=== PATIENT | female | born 1970 | race American Indian/Alaskan Native ===

== ENCOUNTER 2022-02-12 01:35 | Emergency (ER) | payer OTHER ==
[2022-02-12] MEDS ORDERED: predniSONE 20 MG TAB PO SCH (08:30)
[2022-02-12] MEDS ORDERED: ALBUTEROL 2.5 MG/3 ML NEBU IH SCH (08:30)
[2022-02-12] MEDS ORDERED: ACETAMINOPHEN W/CODEINE 300-30 MG TAB PO SCH (08:30)
[2022-02-12] MEDS ORDERED: KETOROLAC 10 MG TAB PO SCH (08:30)
[2022-02-12] MEDS ORDERED: BENZONATATE 100 MG CAP PO SCH (08:30)
--- NOTE | 2022-02-12 08:40 | XRay Report ---
CHEST 2 VIEWS INDICATION / CLINICAL INFORMATION: sob, fever, cough. COMPARISON: None available. FINDINGS: SUPPORT DEVICES: None. HEART / MEDIASTINUM: No significant abnormality. LUNGS / PLEURA: Question mild increased interstitial prominence or developing opacity in left upper l mark No pneumothorax. Signer Name: Artemio Michaud MD Signed: 02/12/2022 8:35 AM Workstation Name: [email or web address]
--- NOTE | 2022-02-12 08:53 | Emergency Department Report ---
- General Chief Complaint: Upper Respiratory Infection Time Seen by Provider: 02/12/22 07:46 Source: patient Mode of arrival: Ambulatory Limitations: No Limitations - History of Present Illness Initial Comments: 51-year-old black female with a past medical history of hypertension and hyperlipidemia presents to the emergency department for evaluation of persistent cough, congestion, and intermittent fever since Thursday. She states that her symptoms have been getting progressively worse now she is coughed so much that she has pain all over when she coughs along with shortness of breath. She states that pain is 7 out of 10 and just an achy feeling. She denies. She states that she has taken some [id number] medication for her symptoms without improvement. MD Complaint: fever, cough, rhinorrhea, nasal congestion -: Gradual, days(s) (5) Severity: moderate Severity scale (0 -10): 7 Quality: aching Consistency: constant Worsens With: other (Cough) Associated Symptoms: fever, chills, myalgias, headache, rhinorrhea, nasal congestion, sore throat, cough, chest pain, shortness of breath. denies: diaphoresis, stiff neck, abdominal pain, nausea, vomiting, diarrhea, dysuria, rash, confusion, ear pain Treatments Prior to Arrival: Acetaminophen, Ibuprofen, "cold medicine" - Related Data Previous Rx's Medication Instructions Recorded Last Taken Type Albuterol Mdi (or & Nicu Only) 2 puff IH QID PRN #8.5 gram 02/12/22 Unknown Rx [ProAir HFA Inhaler] Amoxicillin [Trimox CAP] 1,000 mg PO Q8H 5 Days #15 capsule 02/12/22 Unknown Rx Azithromycin [Zithromax] 250 mg PO DAILY 5 Days #6 tab 02/12/22 Unknown Rx Benzonatate [Tessalon Perles] 100 mg PO Q8HR #21 cap 02/12/22 Unknown Rx guaiFENesin/CODEINE [Robitussin AC] 10 ml PO TID PRN #120 ml 02/12/22 Unknown Rx Allergies Allergy/AdvReac Type Severity Reaction Status Date / Time No Known Allergies Allergy Verified 02/12/22 08:17 ED Review of Systems ROS: Stated complaint: Other details as noted in HPI Comment: All other systems reviewed and negative Constitutional: chills, fever, malaise. denies: weakness Eyes: denies: eye pain, vision change ENT: throat pain, congestion Respiratory: cough, shortness of breath. denies: orthopnea, SOB with exertion, SOB at rest, wheezing Cardiovascular: chest pain. denies: palpitations, dyspnea on exertion, orthopnea, edema, syncope, paroxysmal nocturnal dyspnea Gastrointestinal: denies: abdominal pain, nausea, vomiting, diarrhea, hematemesis, melena, hematochezia Genitourinary: denies: urgency, dysuria Musculoskeletal: denies: back pain Skin: denies: rash, lesions Neurological: headache. denies: weakness, numbness, paresthesias, confusion, abnormal gait ED Past Medical Hx - Medications Home Medications: Home Medications Medication Instructions Recorded Confirmed Last Taken Type Albuterol Mdi (or & Nicu Only) 2 puff IH QID PRN #8.5 gram 02/12/22 Unknown Rx [ProAir HFA Inhaler] Amoxicillin [Trimox CAP] 1,000 mg PO Q8H 5 Days #15 capsule 02/12/22 Unknown Rx Azithromycin [Zithromax] 250 mg PO DAILY 5 Days #6 tab 02/12/22 Unknown Rx Benzonatate [Tessalon Perles] 100 mg PO Q8HR #21 cap 02/12/22 Unknown Rx guaiFENesin/CODEINE [Robitussin AC] 10 ml PO TID PRN #120 ml 02/12/22 Unknown Rx ED Physical Exam - General Limitations: No Limitations General appearance: alert, in no apparent distress - Head Head exam: Present: atraumatic, normocephalic - Eye Eye exam: Present: normal appearance. Absent: conjunctival injection - ENT ENT exam: Present: TM's normal bilaterally. Absent: normal exam (Bilateral nasal mucosal edema.), normal orophraynx (Erythema noted to posterior oropharynx) - Expanded ENT Exam Expanded Ear exam: Present: normal external inspection Throat exam: Negative: tonsillar erythema, tonsillomegaly, tonsillar exudate, R peritonsillar mass, L peritonsillar mass - Neck Neck exam: Present: normal inspection, full ROM. Absent: tenderness, lymphadenopathy, thyromegaly - Respiratory Respiratory exam: Present: wheezes (Intermittent expiratory), chest wall tenderness, decreased breath sounds (Left side). Absent: respiratory distress, rales, rhonchi, stridor - Cardiovascular Cardiovascular Exam: Present: regular rate, normal heart sounds - GI/Abdominal GI/Abdominal exam: Present: soft, normal bowel sounds. Absent: distended, tenderness, guarding, rebound, rigid - Extremities Exam Extremities exam: Present: normal inspection, full ROM, normal capillary refill. Absent: tenderness, pedal edema, joint swelling, calf tenderness - Back Exam Back exam: Present: normal inspection. Absent: CVA tenderness (R), CVA tenderness (L), vertebral tenderness - Neurological Exam Neurological exam: Present: alert, oriented X3 - Psychiatric Psychiatric exam: Present: normal affect, normal mood - Skin Skin exam: Present: warm, dry, intact, normal color ED Course Vital Signs 02/12/22 03:06 Temperature 98 F Pulse Rate 85 Respiratory 18 Rate Blood Pressure 150/103 [Left] O2 Sat by Pulse 99 Oximetry ED Medical Decision Making - Radiology Data Radiology results: report reviewed, image reviewed Chest x-ray: FINDINGS: SUPPORT DEVICES: None. HEART / MEDIASTINUM: No significant abnormality. LUNGS / PLEURA: Question mild increased interstitial prominence or developing opacity in left upper lung No pneumothorax. - Medical Decision Making 51-year-old black female with a past medical history of hypertension and hyperlipidemia presents to the emergency department for evaluation of persistent cough, congestion, and intermittent fever since Thursday. She states that her symptoms have been getting progressively worse now she is coughed so much that she has pain all over when she coughs along with shortness of breath. She states that pain is 7 out of 10 and just an achy feeling. She denies. She states that she has taken some ajjw-prb-lvojjsn medication for her symptoms without improvement. Chest x-ray suggestive of left upper lobe pneumonia. Patient will be treated for community-acquired pneumonia with 5-day course of amoxicillin 1 g p.o. 3 times a day along with Z-Pranav. She will also be given Tessalon Perles and Robitussin-AC for cough and albuterol inhaler for intermittent wheezing. She is advised to take medications as prescribed and follow-up with her primary care provider if no improvement or worsening symptoms in the next 3 to 4 days. She is advised to return to the emergency department for any concerning symptoms. She verbalizes understanding of and agreement with plan of care. Critical care attestation.: If time is entered above; I have spent that time in minutes in the direct care of this critically ill patient, excluding procedure time. ED Disposition Clinical Impression: Pneumonia Qualifiers: Pneumonia type: due to unspecified organism Laterality: left Lung location: upper lobe of lung Qualified Code(s): J18.9 - Pneumonia, unspecified organism Disposition: HOME / SELF CARE / HOMELESS Is pt being admited?: No Does the pt Need Aspirin: No Condition: Stable Instructions: Community-Acquired Pneumonia, Adult, [id number], Bacterial Pneumonia (ED) Additional Instructions: Take medications as prescribed. Follow-up with your primary care provider if no improvement or worsening symptoms in the next 4 to 5 days. Return to the emergency department as needed. Prescriptions: Albuterol Mdi (or & Nicu Only) [ProAir HFA Inhaler] 2 puff IH QID PRN #8.5 gram PRN Reason: Shortness Of Breath guaiFENesin/CODEINE [Robitussin AC] 10 ml PO TID PRN #120 ml PRN Reason: Cough Benzonatate [Tessalon Perles] 100 mg PO Q8HR #21 cap Amoxicillin [Trimox CAP] 1,000 mg PO Q8H 5 Days #15 capsule Azithromycin [Zithromax] 250 mg PO DAILY 5 Days #6 tab Referrals: DARIA STRICKLAND MD [Primary Care Provider] - 3-5 Days Forms: Work/School Release Form(ED) Time of Disposition: 09:03
[2022-02-12 10:03] VITALS: BP 123/89
== END 2022-02-12 10:02 | disposition home or self-care (01) ==
LOC: ED 01:35
DX: J18.9 Pneumonia, unspecified organism (principal)
CPT/HCPCS: 71046; 99283